=== PATIENT | female | born 1930 | race Two or more races ===

== ENCOUNTER 2017-02-25 10:40 | Emergency (ER) | payer MEDICARE ==
[2017-02-25 10:51] VITALS: RESP 18; TEMP 97.9
[2017-02-25 12:06] LABS: INR 2.2 (<1.2); Partial Thromboplastin Time 29.9 sec (22.0-30.0); Prothrombin Time 21.3 sec (9.0-12.0)
--- NOTE | 2017-02-25 12:34 | ED ---
Extremity Problem HPI - General Chief complaint: Extremity Problem,Nontraumatic Stated complaint: leg pain Time Seen by Provider: 02/25/17 11:07 Source: patient, family, RN notes reviewed Mode of arrival: wheelchair Limitations: no limitations - History of Present Illness Initial comments: this is an 86-year-old female presents emergency Department chief complaint of left leg swelling, redness. Patient states that started over the last few weeks and progressively has gotten worse. Patient has seen Dr. Jasso for her left knee had it drained in injected. Patient states that this has not helped.patient states that she's had on and off swelling of the leg and increased pain. Patient states that radiates on into her calf. She has no history DVT. Patient states that she is on Coumadin has not had checked in over 1 month. Patient denies any chest pain or shortness breath at this time. She does have increased pain with walking - Related Data Home Medications Medication Instructions Recorded Confirmed Clopidogrel [Plavix] 75 mg PO DAILY 10/06/14 02/25/17 Levothyroxine Sodium [Synthroid] 75 mcg PO DAILY 10/06/14 02/25/17 Loratadine [Claritin] 10 mg PO DAILY 10/06/14 02/25/17 Ranitidine HCl 150 mg PO HS PRN 10/06/14 02/25/17 Simvastatin [Zocor] 20 mg PO HS 10/06/14 02/25/17 Multivitamin/Iron/Folic Acid 1 tab PO DAILY 03/18/16 02/25/17 [Centrum Complete Multivit Tab] Alendronate Sodium [Fosamax] 70 mg PO HOFFMAN 02/25/17 02/25/17 Ascorbic Acid [Vitamin C] 500 mg PO DAILY 02/25/17 02/25/17 Losartan Potassium [Cozaar] 100 mg PO DAILY 02/25/17 02/25/17 Metoprolol Tartrate [Lopressor] 50 mg PO BID 02/25/17 02/25/17 Warfarin [Coumadin] 1.25 mg PO MOFR 02/25/17 02/25/17 Warfarin [Coumadin] 2.5 mg PO SUTUWETHSA 02/25/17 02/25/17 Previous Rx's Medication Instructions Recorded Aspirin EC [Ecotrin Low Dose] 81 mg PO DAILY #30 tablet. 08/31/16 Furosemide [Lasix] 20 mg PO DAILY #30 tab 03/21/16 Allergies Allergy/AdvReac Type Severity Reaction Status Date / Time adhesive tape Allergy Rash/Hives Verified 02/25/17 11:35 amlodipine besylate Allergy Swelling Verified 02/25/17 11:35 [From Norvasc] codeine Allergy Rash/Hives Verified 02/25/17 11:35 dipyridamole [From Aggrenox] Allergy Nausea Verified 02/25/17 11:35 Penicillins Allergy Rash/Hives Verified 02/25/17 11:35 Review of Systems ROS Statement: Those systems with pertinent positive or pertinent negative responses have been documented in the HPI. ROS Other: All systems not noted in ROS Statement are negative. Past Medical History Past Medical History: CVA/TIA, GERD/Reflux, Hyperlipidemia, Hypertension, Thyroid Disorder History of Any Multi-Drug Resistant Organisms: None Reported Past Surgical History: Appendectomy, Orthopedic Surgery Additional Past Surgical History / Comment(s): Carpal tunnel, plate to R arm, vein stripping in BL LE, BL cataract removal Past Anesthesia/Blood Transfusion Reactions: No Reported Reaction Past Psychological History: No Psychological Hx Reported Smoking Status: Former smoker Past Alcohol Use History: None Reported Past Drug Use History: None Reported - Past Family History Mother Family Medical History: CVA/TIA Father Family Medical History: Cancer Additional Family Medical History / Comment(s): Bone Cancer General Exam Limitations: no limitations General appearance: alert, in no apparent distress Neck exam: Present: normal inspection. Absent: tenderness, meningismus, lymphadenopathy Respiratory exam: Present: normal lung sounds bilaterally. Absent: respiratory distress, wheezes, rales, rhonchi, stridor Cardiovascular Exam: Present: regular rate, normal rhythm, normal heart sounds. Absent: systolic murmur, diastolic murmur, rubs, gallop, clicks Extremities exam: Present: other (left leg there is moderate swelling noted pedal pulses equal bilaterally there are multiple scars noted from vein stripping, left knee full range of motion there is some tenderness in the popliteal region no erythema noted no warmth) Course Vital Signs 02/25/17 02/25/17 10:48 12:45 Temperature 97.9 F Pulse Rate 53 L 55 L Respiratory 18 18 Rate Blood Pressure 196/74 192/81 O2 Sat by Pulse 98 97 Oximetry Medical Decision Making - Medical Decision Making 86 show female presented for left leg pain and intermittent swelling. Patient' s ultrasound does not show acute DVT. Patient does have a gastroc cysts noted patient does see currently see Dr. Jasso orthopedic physician. Patient will follow-up with him return parameters were discussed. - Lab Data Lab Results 02/25/17 Range/Units 11:35 PT 21.3 H (9.0-12.0) sec INR 2.2 H (<1.2) APTT 29.9 (22.0-30.0) sec Disposition Clinical Impression: Burnett cyst Disposition: HOME SELF-CARE Condition: Stable Instructions: Bakers Cyst (ED) Additional Instructions: Please return to the Emergency Department if symptoms worsen or any other concerns. Referrals: Darya Astudillo MD [Primary Care Provider] - 1-2 days Randolph Jasso DO [Doctor of Osteopathic Medicine] - 1-2 days Time of Disposition: 13:02
[2017-02-25 12:46] VITALS: BP 192/81; PULSE 55
--- NOTE | 2017-02-25 12:52 | US ---
EXAMINATION TYPE: US venous doppler duplex LE LT DATE OF EXAM: 02/25/2017 12:11 PM COMPARISON: Previous exam 03/18/2016 CLINICAL HISTORY: Pain. Achy left knee, no h/o dvt SIDE PERFORMED: Left TECHNIQUE: The lower extremity deep venous system is examined utilizing real time linear array sonog stanley with graded compression, doppler sonography and color-flow sonography. VESSELS IMAGED: External Iliac Vein (EIV) Common Femoral Vein Deep Femoral Vein Greater Saphenous Vein * Femoral Vein Popliteal Vein Small Saphenous Vein * Proximal Calf Veins (* superficial vessels) patient had difficulty tolerating compression on left thigh so imaging shows attempted vein carlos lillian, but was able to obtain good color fill and doppler showing patency. Left Leg: Appears negative for DVT, 5.2cm fluid collection noted posterior to vessels as seen on pre vious exam last year IMPRESSION: Grayscale, color doppler, spectral doppler imaging performed of the deep veins of the lo wer extremities. There is normal flow, compressibility, vascular waveforms bilaterally. No evident deep venous thrombosis within the left lower extremity as described. Exam was somewhat limited at the peripheral femoral vein level. 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
== END 2017-02-25 13:09 | disposition home or self-care (01) ==
LOC: EC 10:40
DX: M71.22 Synovial cyst of popliteal space [Baker], left knee (principal); M79.89 Other specified soft tissue disorders; E78.5 Hyperlipidemia, unspecified; I10 Essential (primary) hypertension; E07.9 Disorder of thyroid, unspecified; Z87.891 Personal history of nicotine dependence; Z86.73 Personal history of transient ischemic attack (TIA), and cerebral infarction without residual deficits; Z79.01 Long term (current) use of anticoagulants; Z79.899 Other long term (current) drug therapy; Z88.0 Allergy status to penicillin; Z88.5 Allergy status to narcotic agent; Z88.8 Allergy status to other drugs, medicaments and biological substances; Z91.048 Other nonmedicinal substance allergy status
CPT/HCPCS: 36415; 85610; 85730; 99284

== ENCOUNTER 2017-03-26 16:24 | Observation (INO) | payer MEDICARE ==
[2017-03-26] MEDS ORDERED: HYDROmorphone 1 MG/ML 1 ML SYRINGE IVP STA (16:41)
--- NOTE | 2017-03-26 16:49 | ED ---
Extremity Problem HPI - General Chief complaint: Extremity Problem,Nontraumatic Stated complaint: Lt knee pain Time Seen by Provider: 03/26/17 16:37 Source: patient, EMS Mode of arrival: EMS Limitations: no limitations - History of Present Illness Initial comments: This 86-year-old white female presents complaining of some left leg pain. She relates that she's had this for at least the last month and a half but it has been progressively worsening. She was diagnosed with a cyst behind her left knee during her last ER visit via Doppler ultrasound. They do not notice any DVT. She followed up with her orthopedic physician but they did not want to drain the cyst because it would likely grow back per patient. Orthopedic surgeon. She now is having a hard time ambulating due to the pain. She is brought in via EMS. She is requesting pain medications. No other complaints or modifying factors. - Related Data Home Medications Medication Instructions Recorded Confirmed Clopidogrel [Plavix] 75 mg PO DAILY 10/06/14 03/26/17 Levothyroxine Sodium [Synthroid] 75 mcg PO DAILY 10/06/14 03/26/17 Loratadine [Claritin] 10 mg PO DAILY PRN 10/06/14 03/26/17 Ranitidine HCl 150 mg PO HS PRN 10/06/14 03/26/17 Simvastatin [Zocor] 20 mg PO HS 10/06/14 03/26/17 Multivitamin/Iron/Folic Acid 1 tab PO DAILY 03/18/16 03/26/17 [Centrum Complete Multivit Tab] Alendronate Sodium [Fosamax] 70 mg PO HOFFMAN 02/25/17 03/26/17 Ascorbic Acid [Vitamin C] 500 mg PO DAILY 02/25/17 03/26/17 Losartan Potassium [Cozaar] 100 mg PO DAILY 02/25/17 03/26/17 Metoprolol Tartrate [Lopressor] 50 mg PO BID 02/25/17 03/26/17 Warfarin [Coumadin] 1.25 mg PO MOFR 02/25/17 03/26/17 Warfarin [Coumadin] 2.5 mg PO SUTUWETHSA 02/25/17 03/26/17 Cholecalciferol [Vitamin D3] 1,000 unit PO DAILY 03/26/17 03/26/17 Previous Rx's Medication Instructions Recorded Aspirin EC [Ecotrin Low Dose] 81 mg PO DAILY #30 tablet. 03/21/16 Furosemide [Lasix] 20 mg PO DAILY #30 tab 03/21/16 Allergies Allergy/AdvReac Type Severity Reaction Status Date / Time adhesive tape Allergy Rash/Hives Verified 03/26/17 17:10 amlodipine besylate Allergy Swelling Verified 03/26/17 17:10 [From Norvasc] codeine Allergy Rash/Hives Verified 03/26/17 17:10 dipyridamole [From Aggrenox] Allergy Nausea Verified 03/26/17 17:10 Penicillins Allergy Rash/Hives Verified 03/26/17 17:10 Review of Systems ROS Statement: Those systems with pertinent positive or pertinent negative responses have been documented in the HPI. ROS Other: All systems not noted in ROS Statement are negative. Past Medical History Past Medical History: CVA/TIA, GERD/Reflux, Hyperlipidemia, Hypertension, Thyroid Disorder Additional Past Medical History / Comment(s): Cyst behind Lt Knee History of Any Multi-Drug Resistant Organisms: None Reported Past Surgical History: Appendectomy, Orthopedic Surgery Additional Past Surgical History / Comment(s): Carpal tunnel, plate to R arm, vein stripping in BL LE, BL cataract removal, Left knee drained in February 2017 Past Anesthesia/Blood Transfusion Reactions: No Reported Reaction Past Psychological History: No Psychological Hx Reported Smoking Status: Former smoker Past Alcohol Use History: None Reported Past Drug Use History: None Reported - Past Family History Mother Family Medical History: CVA/TIA Father Family Medical History: Cancer Additional Family Medical History / Comment(s): Bone Cancer General Exam - General Exam Comments Initial Comments: GENERAL: The patient is well nourished and well hydrated. VITAL SIGNS: Heart rate, blood pressure, respiratory rate reviewed as recorded in nurse's notes. EYES: Pupils are round and reactive. Extraocular movements are intact. No conjunctival / lid redness or swelling. ENT: No external evidence of injury, swelling, or ecchymosis. Airway is patent. Throat is clear. NECK: Nontender. No swelling or evidence of injury. No subcutaneous emphysema. Trachea is midline. No thyroid mass. HEART: Regular rate and rhythm. Good peripheral pulses. LUNGS/CHEST: Breath sounds clear and equal bilaterally. No rales, rhonchi, or wheezes. No ecchymosis, subcutaneous emphysema, or tenderness. ABDOMEN: Abdomen soft without tenderness. No palpable masses or organomegaly. No peritoneal signs. No abdominal wall swelling or ecchymosis. EXTREMITIES: There is tenderness noted to the left lower extremity and this seems worse in the area just posterior to the knee and into the left calf region. There is pain with any movement of the leg. Strength is intact. Normal muscle tone and function. No thoracolumbar tenderness. NEUROLOGIC: Sensation is grossly intact. Cranial nerve exam reveals face is symmetrical, tongue is midline, speech is clear. SKIN: No abrasions or ecchymosis is noted. No induration or masses noted. PSYCHIATRIC: Alert and oriented. Appropriate behavior and judgment. Limitations: no limitations Course Vital Signs 03/26/17 16:29 Temperature 97.7 F Pulse Rate 69 Respiratory 20 Rate Blood Pressure 174/95 O2 Sat by Pulse 96 Oximetry Medical Decision Making - Medical Decision Making The patient was seen and examined. Old records were reviewed. It sounds as though her symptomatology is likely due to a Burnett's cyst. She does receive Dilaudid 1 mg IM. The ultrasound did not show any evidence of DVT but it does show a 4.4 cm cyst behind the left knee. She is feeling improved on recheck. She is still unable to ambulate due to the pain. It is felt as though she would require admission to the hospital for further treatment. Case will be discussed with internal medicine shortly. The patient and family are interested in seeing a different orthopedic surgeon. Disposition Clinical Impression: Left leg pain, Bakers cyst, Inability to walk, Left leg swelling Disposition: ADMITTED IP TO THIS [facility] Condition: Fair Referrals: Darya Astudillo MD [Primary Care Provider] - 1-2 days
--- NOTE | 2017-03-26 18:23 | US ---
EXAMINATION TYPE: US venous doppler duplex LE LT DATE OF EXAM: 03/26/2017 5:42 PM COMPARISON: Prior in PACS CLINICAL HISTORY: Pain in left knee. SIDE PERFORMED: Left TECHNIQUE: The lower extremity deep venous system is examined utilizing real time linear array sonog stanley with graded compression, doppler sonography and color-flow sonography. VESSELS IMAGED: External Iliac Vein (EIV) Common Femoral Vein Deep Femoral Vein Greater Saphenous Vein * Femoral Vein Popliteal Vein Small Saphenous Vein * Proximal Calf Veins (* superficial vessels) FINDINGS: Grayscale, color doppler, spectral doppler imaging performed of the deep veins of the lower extremiti es. There is normal flow, compressibility, vascular waveforms. In the left popliteal fossa, there is a complex follicle area visualized measuring 4.4 x 3.4 x 3.8 cm . This likely represents a popliteal cyst and can be further visualized and characterized with MRI if clinically indicated. IMPRESSION: 1. LEFT LOWER EXTREMITY: NEGATIVE FOR DEEP VENOUS THROMBOSIS. 2. 4 CM MEAN DIAMETER ISOECHOIC FINDING THE POPLITEAL FOSSA, LIKELY HERMOSILLO CYST.
[2017-03-26] MEDS ORDERED: NALOXONE 0.4 MG/ML 1 ML VIAL IV PRN (18:29)
[2017-03-26] MEDS ORDERED: ACETAMINOPHEN TAB 325 MG TAB PO PRN (18:29)
[2017-03-26] MEDS ORDERED: LORATADINE 10 MG TAB PO PRN (18:33)
[2017-03-26 18:56] LABS: Basophils % (A) 0 %; CH 31.6; CHCM 34.3; Eosinophils # (A) 0.2 k/uL (0-0.7); Eosinophils % (A) 2 %; HCT 34.6 % (34.0-46.0); HDW 2.38; Luc # (Auto) 0.13; Luc % (Auto) 1; Lymphocytes # (A) 1.3 k/uL (1.0-4.8); Lymphocytes % (A) 13 %; MCH 32.2 pg (25.0-35.0); MCHC 34.8 g/dL (31.0-37.0); MCV 92.3 fL (80.0-100.0); Mean Platelet Volume 6.6; Monocytes # (A) 0.4 k/uL (0-1.0); Monocytes % (A) 4 %; Neutrophils % (A) 80 %; RBC 3.74 m/uL (3.80-5.40); RDW 12.3 % (11.5-15.5); WBC 10.1 k/uL (3.8-10.6); WBC (Perox) 10.24
[2017-03-26] MEDS: ONDANSETRON 4 MG/2 ML VIAL IVP PRN (18:57)
[2017-03-26 19:04] LABS: Anion Gap 8 mmol/L; Blood Urea Nitrogen 21 mg/dL (7-17); Calcium 8.1 mg/dL (8.4-10.2); Carbon Dioxide 23 mmol/L (22-30); Chloride 107 mmol/L (98-107); Glucose 105 mg/dL (74-99); Non-African American GFR(MDRD) >60 (>60 ml/min/1.73 sqM); Potassium 3.5 mmol/L (3.5-5.1); Sodium 138 mmol/L (137-145)
[2017-03-26 19:11] LABS: INR 2.8 (<1.2); Partial Thromboplastin Time 32.4 sec (22.0-30.0); Prothrombin Time 27.4 sec (9.0-12.0)
[2017-03-26] MEDS ORDERED: hydrALAZINE HCL 20 MG/ML 1 ML VIAL IVP STA (19:11)
[2017-03-26] MEDS: METOPROLOL TARTRATE 50 MG TAB PO SCH (19:39)
[2017-03-26] MEDS: HYDROcodone/APAP 5-325MG 1 EACH TAB PO PRN ×2 (19:40→23:31)
[2017-03-26] MEDS: HYDROmorphone 1 MG/ML 1 ML SYRINGE IV PRN (19:58)
[2017-03-26] MEDS: WARFARIN 2.5 MG TAB PO SCH (21:34)
[2017-03-26] MEDS: ATORVASTATIN 10 MG TAB PO SCH (21:35)
[2017-03-27] MEDS: HYDROcodone/APAP 5-325MG 1 EACH TAB PO PRN ×2 (03:29→10:23)
[2017-03-27] MEDS: LEVOTHYROXINE 75 MCG TAB PO SCH (05:51)
[2017-03-27] MEDS ORDERED: LIDOCAINE 2% INJ 20 MG/ML (20 ML MDV) SQ STA (08:30)
[2017-03-27] MEDS ORDERED: CLOPIDOGREL 75 MG TAB PO SCH (09:00)
[2017-03-27] MEDS: METOPROLOL TARTRATE 50 MG TAB PO SCH ×2 (09:02→21:35)
[2017-03-27] MEDS: PANTOPRAZOLE 40 MG/10 ML VIAL IV SCH (09:03)
[2017-03-27] MEDS: LOSARTAN 50 MG TAB PO SCH (09:04)
[2017-03-27] MEDS: ASPIRIN 81 MG PO SCH (09:10)
[2017-03-27] MEDS: FUROSEMIDE 20 MG TAB PO SCH (09:11)
--- NOTE | 2017-03-27 09:26 | P.CNOR ---
History of Present Illness - HPI Consult date: 03/27/17 History of present illness: This is a pleasant 86-year-old female who was admitted for worsening left leg pain. Patient states for about a month now she's had worsening left knee pain. Patient denies any injury or fall. Patient states she's been treated in the past with joint aspiration, cortisone injections and hyaluronic acid injections. 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 patient reports increase in swelling in the left knee. Patient states yesterday she is unable to walk on the left lower extremity due to the pain. Patient states the last time her knee was drained was around 03/17/2017. Patient states she is unable to have an MRI due to pacemaker. Patient denies any numbness, weakness or tingling, fever/chills. Review of Systems See HPI. Past Medical History Past Medical History: CVA/TIA, GERD/Reflux, Hyperlipidemia, Hypertension, Thyroid Disorder Additional Past Medical History / Comment(s): Cyst behind Lt Knee irregular heart beat History of Any Multi-Drug Resistant Organisms: None Reported Past Surgical History: Appendectomy, Orthopedic Surgery, Pacemaker Additional Past Surgical History / Comment(s): Carpal tunnel, plate to R arm, vein stripping in BL LE, BL cataract removal, Left knee drained in February 2017 Past Anesthesia/Blood Transfusion Reactions: No Reported Reaction Type of Cardiac Device: Permanent Pacemaker Device Placement Date:: march 20 2016 Past Psychological History: No Psychological Hx Reported Smoking Status: Former smoker Past Alcohol Use History: None Reported Past Drug Use History: None Reported - Past Family History Mother Family Medical History: CVA/TIA Father Family Medical History: Cancer Additional Family Medical History / Comment(s): Bone Cancer Medications and Allergies Home Medications Medication Instructions Recorded Confirmed Type Clopidogrel [Plavix] 75 mg PO DAILY 10/06/14 03/26/17 History Levothyroxine Sodium [Synthroid] 75 mcg PO DAILY 10/06/14 03/26/17 History Loratadine [Claritin] 10 mg PO DAILY PRN 10/06/14 03/26/17 History Ranitidine HCl 150 mg PO HS PRN 10/06/14 03/26/17 History Simvastatin [Zocor] 20 mg PO HS 10/06/14 03/26/17 History Multivitamin/Iron/Folic Acid 1 tab PO DAILY 03/18/16 03/26/17 History [Centrum Complete Multivit Tab] Aspirin EC [Ecotrin Low Dose] 81 mg PO DAILY #30 tablet. 03/21/16 03/26/17 Rx Furosemide [Lasix] 20 mg PO DAILY #30 tab 03/21/16 03/26/17 Rx Alendronate Sodium [Fosamax] 70 mg PO HOFFMAN 02/25/17 03/26/17 History Ascorbic Acid [Vitamin C] 500 mg PO DAILY 02/25/17 03/26/17 History Losartan Potassium [Cozaar] 100 mg PO DAILY 02/25/17 03/26/17 History Metoprolol Tartrate [Lopressor] 50 mg PO BID 02/25/17 03/26/17 History Warfarin [Coumadin] 1.25 mg PO MOFR 02/25/17 03/26/17 History Warfarin [Coumadin] 2.5 mg PO SUTUWETHSA 02/25/17 03/26/17 History Cholecalciferol [Vitamin D3] 1,000 unit PO DAILY 03/26/17 03/26/17 History Allergies Allergy/AdvReac Type Severity Reaction Status Date / Time adhesive tape Allergy Rash/Hives Verified 03/26/17 17:10 amlodipine besylate Allergy Swelling Verified 03/26/17 17:10 [From Norvasc] codeine Allergy Rash/Hives Verified 03/26/17 17:10 dipyridamole [From Aggrenox] Allergy Nausea Verified 03/26/17 17:10 Penicillins Allergy Rash/Hives Verified 03/26/17 17:10 Physical Examination On exam the left lower extremity there is a moderate joint effusion. There is no erythema or ecchymosis. Patient has limited range of motion with flexion due to swelling and pain. Patient has full extension. Calf is soft and nontender. Patient has full foot and ankle motion. Neurovascular status left lower extremity is intact. Results Ultrasound Venous Doppler left lower extremity shows #1 left lower extremity negative for deep venous thrombosis. #2. 4 cm mean diameter isoechoic finding the popliteal fossa, likely Burnett cyst. - Labs Labs: Abnormal Lab Results - Last 24 Hours (Table) 03/26/17 03/26/17 03/26/17 Range/Units 18:40 18:40 18:40 RBC 3.74 L (3.80-5.40) m/uL Neutrophils # 8.0 H (1.3-7.7) k/uL PT 27.4 H (9.0-12.0) sec INR 2.8 H (<1.2) APTT 32.4 H (22.0-30.0) sec BUN 21 H (7-17) mg/dL Glucose 105 H (74-99) mg/dL Calcium 8.1 L (8.4-10.2) mg/dL H & H 03/26/17 Range/Units 18:40 Hgb 12.0 (11.4-16.0) gm/dL Hct 34.6 (34.0-46.0) % Coagulation 03/26/17 Range/Units 18:40 INR 2.8 H (<1.2) Result Diagrams: 03/26/17 18:40 03/26/17 18:40 Assessment and Plan (1) Effusion, left knee Status: Acute (2) Bakers cyst Status: Acute (3) Left leg pain Status: Acute Plan: #1. Joint aspiration performed using 2% Xylocaine for local anesthetic. 60cc of sanguineous joint fluid was obtained. Patient tolerated the procedure well. A compressive Akbar wrap was applied. #2. Joint fluid to be sent out for analysis. #3. X-ray of the left knee is pending. #4. Area to continue compressive Akbar wrap, rest, ice and elevation. #5. Will continue to follow the patient closely.
--- NOTE | 2017-03-27 09:31 | XR ---
EXAMINATION TYPE: XR knee complete LT DATE OF EXAM: 03/27/2017 COMPARISON: NONE HISTORY: Pain TECHNIQUE: Four views are submitted. FINDINGS: Diffuse osteopenia. There is hypertrophic change and narrowing of the medial compartment joint space. There is a large suprapatellar bursal fluid collection. Scalloping of the anterior margin distal chris physis femur noted. Osseous density off the posterior margin the femur may represent a small left IMPRESSION: 1. 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 There is slight displacement whitney lla. Recommend MRI. 2. Chronic-appearing scalloping of the anterior cortex distal diaphysis femur also could be assessed with MRI.
[2017-03-27] MEDS ORDERED: MAG HYDROX/AL HYDROX/SIMETH 30 ML, HYOSCYAMINE ELIXIR 10 ML, CIMETIDINE HCL 300 MG PO STA ×3 (11:05)
[2017-03-27] MEDS: traMADol 50 MG TAB PO PRN ×2 (11:10→19:25)
[2017-03-27] MEDS ORDERED: FAMOTIDINE 20 MG/2 ML VIAL IV SCH (11:15)
[2017-03-27 12:20] LABS: Synovial Crystal Source Left Knee
[2017-03-27 12:21] LABS: RBC, Body Fluid 2045000 /uL
[2017-03-27] MEDS: ASCORBIC ACID 500 MG TAB PO SCH (12:29)
[2017-03-27] MEDS: MULTIVITAMINS, THERA 1 EACH TAB PO SCH (12:29)
[2017-03-27] MEDS: CHOLECALCIFEROL 1,000 UNIT TAB PO SCH (12:29)
--- NOTE | 2017-03-27 12:48 | P.HPIM ---
History of Present Illness H&P Date: 03/27/17 Chief Complaint: Left knee pain [id number] female who has been having problems with her left knee since 2016 Patient apparently underwent an arthrocentesis and workup by Dr. hanson at that time. Today patient comes in to the hospital with worsening pain in her left knee for the last 3-4 days. 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 Patient was told that she has significant osteoarthritis of the left knee. Patient is on Coumadin for her history of atrial fibrillation was noted to have a therapeutic INR on admission States that her main complaints of insignificant worsening edema in her left lower extremity with associated tenderness patient underwent a DVT study initially a month ago which was also negative A DVT study was done on this admission which was also negative At this time patient denies having any fevers chills nausea vomiting abdominal pain diarrhea urinary urgency or frequency Patient denies having any history of gout or any renal colic diseases. Review of Systems All systems: negative (Noted in HPI) Past Medical History Past Medical History: CVA/TIA, GERD/Reflux, Hyperlipidemia, Hypertension, Thyroid Disorder Additional Past Medical History / Comment(s): Cyst behind Lt Knee irregular heart beat History of Any Multi-Drug Resistant Organisms: None Reported Past Surgical History: Appendectomy, Orthopedic Surgery, Pacemaker Additional Past Surgical History / Comment(s): Carpal tunnel, plate to R arm, vein stripping in BL LE, BL cataract removal, Left knee drained in February 2017 Past Anesthesia/Blood Transfusion Reactions: No Reported Reaction Type of Cardiac Device: Permanent Pacemaker Device Placement Date:: march 20 2016 Past Psychological History: No Psychological Hx Reported Smoking Status: Former smoker Past Alcohol Use History: None Reported Past Drug Use History: None Reported - Past Family History Mother Family Medical History: CVA/TIA Father Family Medical History: Cancer Additional Family Medical History / Comment(s): Bone Cancer Medications and Allergies Home Medications Medication Instructions Recorded Confirmed Type Levothyroxine Sodium [Synthroid] 75 mcg PO DAILY 10/06/14 03/26/17 History Loratadine [Claritin] 10 mg PO DAILY PRN 10/06/14 03/26/17 History Ranitidine HCl 150 mg PO HS PRN 10/06/14 03/26/17 History Simvastatin [Zocor] 20 mg PO HS 10/06/14 03/26/17 History Multivitamin/Iron/Folic Acid 1 tab PO DAILY 03/18/16 03/26/17 History [Centrum Complete Multivit Tab] Aspirin EC [Ecotrin Low Dose] 81 mg PO DAILY #30 tablet. 03/21/16 03/26/17 Rx Furosemide [Lasix] 20 mg PO DAILY #30 tab 03/21/16 03/26/17 Rx Alendronate Sodium [Fosamax] 70 mg PO HOFFMAN 02/25/17 03/26/17 History Ascorbic Acid [Vitamin C] 500 mg PO DAILY 02/25/17 03/26/17 History Losartan Potassium [Cozaar] 100 mg PO DAILY 02/25/17 03/26/17 History Metoprolol Tartrate [Lopressor] 50 mg PO BID 02/25/17 03/26/17 History Warfarin [Coumadin] 1.25 mg PO MOFR 02/25/17 03/26/17 History Warfarin [Coumadin] 2.5 mg PO SUTUWETHSA 02/25/17 03/26/17 History Cholecalciferol [Vitamin D3] 1,000 unit PO DAILY 03/26/17 03/26/17 History Allergies Allergy/AdvReac Type Severity Reaction Status Date / Time adhesive tape Allergy Rash/Hives Verified 03/26/17 17:10 amlodipine besylate Allergy Swelling Verified 03/26/17 17:10 [From Norvasc] codeine Allergy Rash/Hives Verified 03/26/17 17:10 dipyridamole [From Aggrenox] Allergy Nausea Verified 03/26/17 17:10 Penicillins Allergy Rash/Hives Verified 03/26/17 17:10 Physical Exam Vitals: Vital Signs Temp Pulse Pulse Resp BP BP Pulse Ox 03/27/17 07:00 97.9 F 74 16 147/64 93 L 03/26/17 23:00 98.1 F 83 20 134/62 96 03/26/17 20:31 99.5 F 84 20 160/76 95 03/26/17 20:04 98.2 F 76 16 190/83 95 03/26/17 19:37 184/82 03/26/17 19:09 200/78 03/26/17 16:29 97.7 F 69 20 174/95 96 Intake and Output 03/26/17 03/27/17 03/27/17 22:59 06:59 14:59 Intake Total 150 Balance 150 Intake: Oral 150 Other: # Voids 2 1 1 # Emeses 2 Weight 86.183 kg Physical exam Gen. appearance oriented 3 in no distress Neck is supple no JVD Lungs good air entry clear to auscultation no rhonchi or wheezing Heart S1-S2 heard regular rate and rhythm no murmurs appreciated Abdomen is soft nontender no organomegaly bowel sounds are intact Musculoskeletal left knee is wrapped after the arthrocentesis. There is edema pitting in nature from below the knee on the left side area tender to palpation Neurologically cranial nerves II-12 grossly intact no focal motor or sensory deficits noted Skin no abnormalities appreciated Results CBC & Chem 7: 03/26/17 18:40 03/26/17 18:40 Labs: Abnormal Lab Results - Last 24 Hours (Table) 03/26/17 03/26/17 03/26/17 Range/Units 18:40 18:40 18:40 RBC 3.74 L (3.80-5.40) m/uL Neutrophils # 8.0 H (1.3-7.7) k/uL PT 27.4 H (9.0-12.0) sec INR 2.8 H (<1.2) APTT 32.4 H (22.0-30.0) sec BUN 21 H (7-17) mg/dL Glucose 105 H (74-99) mg/dL Calcium 8.1 L (8.4-10.2) mg/dL Thrombosis Risk Factor Assmnt - Choose All That Apply Any of the Below Risk Factors Present?: Yes Each Factor Represents 1 point: Medical pt on bed rest, Obesity (BMI >25), Swollen legs (current) Other Risk Factors: Yes Each Risk Factor Represents 3 Points: Age 75 years or older Other congenital or acquired thrombophilia - If yes, enter type in comment: No Thrombosis Risk Factor Assessment Total Risk Factor Score: 6 Thrombosis Risk Factor Assessment Level: High Risk Assessment and Plan Plan: #1 acute left knee effusion synovitis fluid analysis does not appear to be suggestive of an infectious cause #2 history of atrial fibrillation #3 history of CVA #4 hypothymism #5 essential hypertension #6 acute gastritis due to opioid non-tolerance. #7 dyslipidemia Plan Await further laboratory data. A uric acid level was also sent Compression wrap of the lower extremity a deep vein thrombosis was ruled out Continue pain control add Toradol for pain. Will continue monitoring PT/INR.
[2017-03-27] MEDS ORDERED: MAG HYDROX/AL HYDROX/SIMETH 30 ML, HYOSCYAMINE ELIXIR 10 ML, CIMETIDINE HCL 300 MG PO ONE ×3 (13:00)
[2017-03-27] MEDS: WARFARIN 2.5 MG TAB PO SCH (17:32)
[2017-03-27] MEDS: ATORVASTATIN 10 MG TAB PO SCH (21:35)
[2017-03-27] MEDS: HYDROmorphone 1 MG/ML 1 ML SYRINGE IV PRN (23:26)
[2017-03-28] MEDS: traMADol 50 MG TAB PO PRN ×3 (04:11→20:47)
[2017-03-28] MEDS: LEVOTHYROXINE 75 MCG TAB PO SCH (06:23)
[2017-03-28] MEDS: METOPROLOL TARTRATE 50 MG TAB PO SCH ×2 (07:50→20:46)
[2017-03-28] MEDS: LOSARTAN 50 MG TAB PO SCH (07:50)
[2017-03-28] MEDS: FUROSEMIDE 20 MG TAB PO SCH (07:50)
[2017-03-28] MEDS: ASPIRIN 81 MG PO SCH (07:51)
[2017-03-28] MEDS: PANTOPRAZOLE 40 MG/10 ML VIAL IV SCH (08:36)
[2017-03-28 08:47] LABS: INR 3.9 (<1.2); Prothrombin Time 37.9 sec (9.0-12.0)
--- NOTE | 2017-03-28 09:18 | P.PN ---
Subjective Principal diagnosis: Left knee pain, left knee effusion This is an 86-year-old female who was admitted for left knee pain. Patient states she still has pain in the left knee today along with swelling. Patient states she has kept the compressive Akbar wrap on. Patient has no new complaints today. Patient did report some tingling in the left foot most likely caused by swelling and the akbar wrap. Patient denies fever/chills. Objective - Vital Signs Vital signs: Vital Signs Temp 98.8 F 03/28/17 07:00 Pulse 90 03/28/17 07:00 Resp 18 03/28/17 07:00 BP 137/79 03/28/17 07:00 Pulse Ox 94 L 03/28/17 07:00 Intake & Output 03/27/17 03/28/17 03/28/17 18:59 06:59 18:59 Output Total 1 Balance -1 Output: Emesis 1 Other: # Voids 1 2 - Exam On examination left lower extremity there is a moderate effusion. There is no erythema or warmth. Patient has limited range of motion due to pain and swelling. Calf is soft and nontender. Patient has full foot and ankle motion. Neurovascular status intact. - Labs CBC & Chem 7: 03/26/17 18:40 03/26/17 18:40 Labs: Microbiology - Last 24 Hours (Table) 03/27/17 09:00 Gram Stain - Preliminary Knee - Left Body Fluid Culture - Preliminary Assessment and Plan (1) Effusion, left knee Status: Acute (2) Bakers cyst Status: Acute (3) Left leg pain Status: Acute Plan: #1. Synovial fluid analysis of the left knee negative for any acute process. #2. Knee immobilizer to the left lower extremity. #3. X-ray of the left knee shows osteoarthritic changes. No fracture or dislocation. There is scalloping of the anterior distal femur. Patient is unable to have an MRI due to pacemaker. #4. Continue compressive Akbar wrap, rest, ice and elevation. #5. Patient may follow up as an outpatient in the office.
[2017-03-28] MEDS: MULTIVITAMINS, THERA 1 EACH TAB PO SCH (11:55)
[2017-03-28] MEDS: CHOLECALCIFEROL 1,000 UNIT TAB PO SCH (11:55)
[2017-03-28] MEDS: ASCORBIC ACID 500 MG TAB PO SCH (11:55)
[2017-03-28] MEDS: ONDANSETRON 4 MG/2 ML VIAL IVP PRN (13:30)
[2017-03-28] MEDS: WARFARIN 2.5 MG TAB PO SCH (17:12)
--- NOTE | 2017-03-28 17:58 | P.PN ---
Subjective 86-year-old female who has been having problems with her left knee since 2016 Patient apparently underwent an arthrocentesis and workup by Dr. hanson at that time. Today patient comes in to the hospital with worsening pain in her left knee for the last 3-4 days. 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 Patient was told that she has significant osteoarthritis of the left knee. Patient is on Coumadin for her history of atrial fibrillation was noted to have a therapeutic INR on admission States that her main complaints of insignificant worsening edema in her left lower extremity with associated tenderness patient underwent a DVT study initially a month ago which was also negative A DVT study was done on this admission which was also negative At this time patient denies having any fevers chills nausea vomiting abdominal pain diarrhea urinary urgency or frequency Patient denies having any history of gout or any renal colic diseases. 03/28/2017 Patient continues to have edema and tenderness in her left lower extremity. No fevers chills chest pain difficulty breathing nausea vomiting diarrhea is reported Physical exam Gen. appearance oriented 3 in no distress Neck is supple no JVD Lungs good air entry clear to auscultation no rhonchi or wheezing Heart S1-S2 heard regular rate and rhythm no murmurs appreciated Abdomen is soft nontender no organomegaly bowel sounds are intact Musculoskeletal left knee is wrapped There is edema pitting in nature from below the knee on the left side area tender to palpation Neurologically cranial nerves II-12 grossly intact no focal motor or sensory deficits noted Skin no abnormalities appreciated Assessment and Plan Plan: #1 acute left knee effusion synovitis fluid analysis does not appear to be suggestive of an infectious cause #2 history of atrial fibrillation #3 history of CVA #4 hypothyroidism #5 essential hypertension #6 acute gastritis due to opioid non-tolerance. #7 dyslipidemia Plan Hold Coumadin. Repeat PT/INR tomorrow Pain control Patient will need a knee replacement the timing of the liver defer to orthopedics however patient is stable to be discharged due to lack of support at home for her ADLs Physical therapy evaluation Objective - Vital Signs Vital signs: Vital Signs Temp 96.3 F L 03/28/17 15:00 Pulse 66 03/28/17 15:00 Resp 16 03/28/17 15:00 BP 183/70 03/28/17 15:00 Pulse Ox 93 L 03/28/17 15:00 Intake & Output 03/27/17 03/28/17 03/28/17 18:59 06:59 18:59 Output Total 1 Balance -1 Output: Emesis 1 Other: # Voids 1 2 1 - Labs CBC & Chem 7: 03/26/17 18:40 03/26/17 18:40 Labs: Abnormal Lab Results - Last 24 Hours (Table) 03/28/17 Range/Units 08:21 PT 37.9 H (9.0-12.0) sec INR 3.9 H (<1.2) Microbiology - Last 24 Hours (Table) 03/27/17 09:00 Gram Stain - Preliminary Knee - Left Body Fluid Culture - Preliminary
[2017-03-28] MEDS: ATORVASTATIN 10 MG TAB PO SCH (20:46)
[2017-03-29] MEDS: traMADol 50 MG TAB PO PRN ×2 (04:00→15:51)
[2017-03-29] MEDS: ONDANSETRON 4 MG/2 ML VIAL IVP PRN (04:00)
[2017-03-29] MEDS: LEVOTHYROXINE 75 MCG TAB PO SCH (06:48)
[2017-03-29] MEDS ORDERED: PANTOPRAZOLE 40 MG TABLET PO SCH (07:30)
[2017-03-29] MEDS: METOPROLOL TARTRATE 50 MG TAB PO SCH (07:56)
[2017-03-29] MEDS: ASPIRIN 81 MG PO SCH (07:57)
[2017-03-29] MEDS: LOSARTAN 50 MG TAB PO SCH (07:57)
[2017-03-29] MEDS: FUROSEMIDE 20 MG TAB PO SCH (07:57)
[2017-03-29 08:54] LABS: Basophils % (A) 0 %; CH 31.6; CHCM 34.7; Eosinophils # (A) 0.1 k/uL (0-0.7); Eosinophils % (A) 1 %; HCT 36.4 % (34.0-46.0); HDW 2.48; HGB 12.7 gm/dL (11.4-16.0); Luc # (Auto) 0.14; Luc % (Auto) 1; Lymphocytes # (A) 1.2 k/uL (1.0-4.8); Lymphocytes % (A) 11 %; MCHC 34.9 g/dL (31.0-37.0); MCV 91.6 fL (80.0-100.0); Mean Platelet Volume 6.6; Monocytes # (A) 0.8 k/uL (0-1.0); Monocytes % (A) 7 %; Neutrophils # (A) 9.4 k/uL (1.3-7.7); Neutrophils % (A) 80 %; RBC 3.97 m/uL (3.80-5.40); RDW 12.2 % (11.5-15.5); WBC 11.7 k/uL (3.8-10.6)
[2017-03-29 08:56] LABS: INR 4.6 (<1.2)
[2017-03-29 09:14] LABS: Prothrombin Time 45.8 sec (9.0-12.0)
[2017-03-29 09:17] LABS: ALT 28 U/L (9-52); AST 32 U/L (14-36); Alkaline Phosphatase 72 U/L (38-126); Anion Gap 8 mmol/L; Blood Urea Nitrogen 15 mg/dL (7-17); Calcium 8.7 mg/dL (8.4-10.2); Carbon Dioxide 30 mmol/L (22-30); Chloride 89 mmol/L (98-107); Glucose 127 mg/dL (74-99); Non-African American GFR(MDRD) >60 (>60 ml/min/1.73 sqM); Potassium 3.5 mmol/L (3.5-5.1); Sodium 127 mmol/L (137-145); Total Bilirubin 0.8 mg/dL (0.2-1.3); Total Protein 6.5 g/dL (6.3-8.2)
[2017-03-29] MEDS: CHOLECALCIFEROL 1,000 UNIT TAB PO SCH (12:01)
[2017-03-29] MEDS: ASCORBIC ACID 500 MG TAB PO SCH (12:01)
[2017-03-29] MEDS: MULTIVITAMINS, THERA 1 EACH TAB PO SCH (12:01)
--- NOTE | 2017-03-29 13:15 | P.PN ---
Subjective Principal diagnosis: Left knee pain, left knee effusion This is an 86-year-old female who was admitted for left knee pain. Patient continues to have pain and swelling in the left knee. Patient states she has kept the compressive Akbar wrap on. Patient has no new complaints today. Patient states she had difficulty getting out of bed with physical therapy today the pain in the knee. Family states the patient has been up in a chair once or twice within the last 2 days. Patient denies fever/chills. Objective - Vital Signs Vital signs: Vital Signs Temp 98.5 F 03/29/17 07:00 Pulse 70 03/29/17 07:00 Resp 18 03/29/17 07:00 BP 174/85 03/29/17 07:00 Pulse Ox 91 L 03/29/17 07:00 Intake & Output 03/28/17 03/29/17 03/29/17 18:59 06:59 18:59 Other: Voiding Method Bedside Commode # Voids 1 2 1 - Exam On examination left lower extremity there is a moderate effusion. There is no erythema or warmth. Patient has limited range of motion due to pain and swelling. Calf is soft and nontender. Patient has full foot and ankle motion. There is swelling of the left foot, but sensation is intact. Neurovascular status intact. - Labs CBC & Chem 7: 03/29/17 08:32 03/29/17 08:32 Labs: Abnormal Lab Results - Last 24 Hours (Table) 03/29/17 03/29/17 03/29/17 Range/Units 08:32 08:32 08:32 WBC 11.7 H (3.8-10.6) k/uL Neutrophils # 9.4 H (1.3-7.7) k/uL PT 45.8 H (9.0-12.0) sec INR 4.6 H (<1.2) Sodium 127 L (137-145) mmol/L Chloride 89 L (98-107) mmol/L Glucose 127 H (74-99) mg/dL Microbiology - Last 24 Hours (Table) 03/27/17 09:00 Gram Stain - Preliminary Knee - Left Body Fluid Culture - Preliminary Assessment and Plan (1) Effusion, left knee Status: Acute (2) Bakers cyst Status: Acute (3) Left leg pain Status: Acute Plan: #1. GIOVANA hose ordered. #2. Continue knee immobilizer to the left lower extremity when out of bed. #2. Synovial fluid analysis of the left knee negative for any acute process. #3. X-ray of the left knee shows osteoarthritic changes. No fracture or dislocation. There is scalloping of the anterior distal femur. Patient is unable to have an MRI due to pacemaker. #4. Continue compressive Akbar wrap, rest, ice and elevation. #5. Patient's is in the room today and all questions were answered. Discussed follow-up in the office in one week. Likely discharge to rehab per medicine.
--- NOTE | 2017-03-29 13:55 | P.CONS ---
History of Present Illness - Chief Complaint Walking difficulty - History of Present Illness I had him to see patient for inpatient rehab consultation with regard to walking difficulty. She was admitted to [facility] March 26 with left knee pain. Seen by Dr. Sony Medrano for same who notes Burnett's cyst and effusions. Left knee x-ray demonstrates osteoarthritis, suprapatellar effusion , chronic scalloping distal femur. Left leg Doppler negative for DVT. PT reports moderate assistance for functional debility. OT reports supervision for upper dressing and toileting and maximal assistance for lower dressing and functional mobility. Moderate assistance for bathing. Previous functional history as elicited from patient and : 86-year-old right-handed white female who is lives in one form with . Both are retired. Describes independent with cooking, laundry, driving, standing shower and gait with cane or 4 wheeled walker. History smoking in the past but doesn't smoke or drink currently. Family history of cancer in father and mother with heart attack and cardiac disease. Review of Systems Review of systems: ENT: Denies sneezes or discharge. Eyes: Denies discharge or photophobia. Cardiac: Denies chest pain or palpitation. Pulmonary: Denies cough or shortness of breath. Breast: Denies discharge or lumps. Gastrointestinal: Denies nausea, emesis, constipation, diarrhea. Genitourinary: Denies discharge or frequency. Musculoskeletal: Left knee pain. Neurologic: Denies motor or sensory change except related to the left leg. Endocrine: Denies shakes or sweats. Oncology: Denies cancers. Dermatologic: Denies rash, itching, pruritus. ALLERGY/immunology: Denies sneezes, rashes. Past Medical History Past Medical History: CVA/TIA, GERD/Reflux, Hyperlipidemia, Hypertension, Thyroid Disorder Additional Past Medical History / Comment(s): Cyst behind Lt Knee irregular heart beat History of Any Multi-Drug Resistant Organisms: None Reported Past Surgical History: Appendectomy, Orthopedic Surgery, Pacemaker Additional Past Surgical History / Comment(s): Carpal tunnel, plate to R arm, vein stripping in BL LE, BL cataract removal, Left knee drained in February 2017 Past Anesthesia/Blood Transfusion Reactions: No Reported Reaction Type of Cardiac Device: Permanent Pacemaker Device Placement Date:: march 20 2016 Past Psychological History: No Psychological Hx Reported Smoking Status: Former smoker Past Alcohol Use History: None Reported Past Drug Use History: None Reported - Past Family History Mother Family Medical History: CVA/TIA Father Family Medical History: Cancer Additional Family Medical History / Comment(s): Bone Cancer Medications and Allergies Home Medications Medication Instructions Recorded Confirmed Type Levothyroxine Sodium [Synthroid] 75 mcg PO DAILY 10/06/14 03/26/17 History Loratadine [Claritin] 10 mg PO DAILY PRN 10/06/14 03/26/17 History Ranitidine HCl 150 mg PO HS PRN 10/06/14 03/26/17 History Simvastatin [Zocor] 20 mg PO HS 10/06/14 03/26/17 History Multivitamin/Iron/Folic Acid 1 tab PO DAILY 03/18/16 03/26/17 History [Centrum Complete Multivit Tab] Aspirin EC [Ecotrin Low Dose] 81 mg PO DAILY #30 tablet. 03/21/16 03/26/17 Rx Furosemide [Lasix] 20 mg PO DAILY #30 tab 03/21/16 03/26/17 Rx Alendronate Sodium [Fosamax] 70 mg PO HOFFMAN 02/25/17 03/26/17 History Ascorbic Acid [Vitamin C] 500 mg PO DAILY 02/25/17 03/26/17 History Losartan Potassium [Cozaar] 100 mg PO DAILY 02/25/17 03/26/17 History Metoprolol Tartrate [Lopressor] 50 mg PO BID 02/25/17 03/26/17 History Warfarin [Coumadin] 1.25 mg PO MOFR 02/25/17 03/26/17 History Warfarin [Coumadin] 2.5 mg PO SUTUWETHSA 02/25/17 03/26/17 History Cholecalciferol [Vitamin D3] 1,000 unit PO DAILY 03/26/17 03/26/17 History Allergies Allergy/AdvReac Type Severity Reaction Status Date / Time adhesive tape Allergy Rash/Hives Verified 03/26/17 17:10 amlodipine besylate Allergy Swelling Verified 03/26/17 17:10 [From Norvasc] codeine Allergy Rash/Hives Verified 03/26/17 17:10 dipyridamole [From Aggrenox] Allergy Nausea Verified 03/26/17 17:10 Penicillins Allergy Rash/Hives Verified 03/26/17 17:10 Physical Exam Vitals: Vital Signs Temp Pulse Resp BP Pulse Ox 03/29/17 07:00 98.5 F 70 18 174/85 91 L 03/29/17 02:43 156/76 03/28/17 23:00 98.5 F 62 16 194/83 96 03/28/17 15:00 96.3 F L 66 16 183/70 93 L Intake and Output 03/28/17 03/29/17 03/29/17 22:59 06:59 14:59 Other: Voiding Method Bedside Commode # Voids 1 2 1 Skin: Good color, texture, turgor. General: Overweight and comfortable appearance and not moving. Head: Normocephalic, atraumatic. Eyes: Symmetric. Pupils equal round. Ears: Symmetric. Hearing within normal limits. Mouth: Clear. Neck: Supple. Carotid without bruit. Cardiac: Regular rate and rhythm. Lungs: Clear anteriorly and posteriorly. Abdomen: Soft active nontender. Extremities: Normal tone. Akbar wrapping around left leg from distal thigh to foot Neurological: Mental status: Alert, cooperative, pleasant. Cranial nerves: Symmetric facial tone and trapezius. Motor: Normal strength and isolation all 4 limbs but with definite giveaway weakness left leg. Sensation: Intact throughout. DTRs: Symmetric and equal throughout. Mobility: Sits and stands with moderate assistance. Results CBC & Chem 7: 03/29/17 08:32 03/29/17 08:32 Labs: Abnormal Lab Results - Last 24 Hours (Table) 03/29/17 03/29/17 03/29/17 Range/Units 08:32 08:32 08:32 WBC 11.7 H (3.8-10.6) k/uL Neutrophils # 9.4 H (1.3-7.7) k/uL PT 45.8 H (9.0-12.0) sec INR 4.6 H (<1.2) Sodium 127 L (137-145) mmol/L Chloride 89 L (98-107) mmol/L Glucose 127 H (74-99) mg/dL Microbiology - Last 24 Hours (Table) 03/27/17 09:00 Gram Stain - Preliminary Knee - Left Body Fluid Culture - Preliminary Assessment and Plan (1) Left leg pain Status: Acute Plan: Taylor: 1. Walking difficulty. 2. Left leg pain with Burnett cyst and edema. 3. Overweight. 4. Hypertension. 5. Dyslipidemia. 6. History of stroke. Comments and plan: At this time PT and OT are ongoing. I have discussed PT and OT with patient and she voiced concern about ability to participate. Did attempt to encourage her.
[2017-03-29 15:27] VITALS: BP 134/57; PULSE 68; RESP 16; TEMP 97.9
[2017-03-29] MEDS ORDERED: WARFARIN 1.25 MG TAB PO SCH (18:00)
--- NOTE | 2017-03-29 19:33 | P.DS ---
Providers Date of admission: 03/26/17 18:29 Attending physician: Marcos Chan MD Consults: 03/26/17 18:31 Consult Physician Urgent Consulting Provider: Evan Medrano Consult Reason/Comments: left leg pain Do you want consulting provider notified?: Yes 03/29/17 10:58 Consult Physician Routine Consulting Provider: Jose Miguel Jamil Consult Reason/Comments: inpatient rehab Do you want consulting provider notified?: Yes Primary care physician: Darya Astudillo Hospital Course: 86-year-old female who has been having problems with her left knee since 2016 Patient apparently underwent an arthrocentesis and workup by Dr. hanson at that time. Today patient comes in to the hospital with worsening pain in her left knee for the last 3-4 days. 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 Patient was told that she has significant osteoarthritis of the left knee. Patient is on Coumadin for her history of atrial fibrillation was noted to have a therapeutic INR on admission States that her main complaints of insignificant worsening edema in her left lower extremity with associated tenderness patient underwent a DVT study initially a month ago which was also negative A DVT study was done on this admission which was also negative At this time patient denies having any fevers chills nausea vomiting abdominal pain diarrhea urinary urgency or frequency Patient denies having any history of gout or any renal colic diseases. 03/28/2017 Patient continues to have edema and tenderness in her left lower extremity. No fevers chills chest pain difficulty breathing nausea vomiting diarrhea is reported Physical exam Gen. appearance oriented 3 in no distress Neck is supple no JVD Lungs good air entry clear to auscultation no rhonchi or wheezing Heart S1-S2 heard regular rate and rhythm no murmurs appreciated Abdomen is soft nontender no organomegaly bowel sounds are intact Musculoskeletal left knee is wrapped There is edema pitting in nature from below the knee on the left side area tender to palpation Neurologically cranial nerves II-12 grossly intact no focal motor or sensory deficits noted Skin no abnormalities appreciated Assessment and Plan Plan: #1 acute left knee effusion synovitis fluid analysis does not appear to be suggestive of an infectious cause #2 history of atrial fibrillation #3 history of CVA #4 hypothyroidism #5 essential hypertension #6 acute gastritis due to opioid non-tolerance. #7 dyslipidemia Patient could not be discharged to rehab facility Did discuss seeking additional help from family. Safety issues were addressed. pt's INR discharge will 4.4 did discuss holding off of Coumadin for the next 2 doses She now wants to follow-up with Dr. Hanson an appointment was made in 1 week In control is addressed the discharge the patient with tramadol knee immobilizer as recommended Akbar wrap is recommended per graph home with home care Patient Condition at Discharge: Fair Plan - Discharge Summary New Discharge Prescriptions: New traMADol HCl [Ultram] 50 mg PO TID PRN #40 tab PRN Reason: pain Continue Simvastatin [Zocor] 20 mg PO HS Ranitidine HCl 150 mg PO HS PRN PRN Reason: Heartburn Loratadine [Claritin] 10 mg PO DAILY PRN PRN Reason: Allergy Symptoms Levothyroxine Sodium [Synthroid] 75 mcg PO DAILY Multivitamin/Iron/Folic Acid [Centrum Complete Multivit Tab] 1 tab PO DAILY Furosemide [Lasix] 20 mg PO DAILY #30 tab Aspirin EC [Ecotrin Low Dose] 81 mg PO DAILY #30 tablet. Warfarin [Coumadin] 2.5 mg PO SUTUWETHSA Warfarin [Coumadin] 1.25 mg PO MOFR Metoprolol Tartrate [Lopressor] 50 mg PO BID Losartan Potassium [Cozaar] 100 mg PO DAILY Ascorbic Acid [Vitamin C] 500 mg PO DAILY Alendronate Sodium [Fosamax] 70 mg PO HOFFMAN Cholecalciferol [Vitamin D3] 1,000 unit PO DAILY Discharge Medication List Levothyroxine Sodium [Synthroid] 75 mcg PO DAILY 10/06/14 [History] Loratadine [Claritin] 10 mg PO DAILY PRN 10/06/14 [History] Ranitidine HCl 150 mg PO HS PRN 10/06/14 [History] Simvastatin [Zocor] 20 mg PO HS 10/06/14 [History] Multivitamin/Iron/Folic Acid [Centrum Complete Multivit Tab] 1 tab PO DAILY [History] Aspirin EC [Ecotrin Low Dose] 81 mg PO DAILY #30 tablet. 03/21/16 [Rx] Furosemide [Lasix] 20 mg PO DAILY #30 tab 03/21/16 [Rx] Alendronate Sodium [Fosamax] 70 mg PO HOFFMAN 02/25/17 [History] Ascorbic Acid [Vitamin C] 500 mg PO DAILY 02/25/17 [History] Losartan Potassium [Cozaar] 100 mg PO DAILY 02/25/17 [History] Metoprolol Tartrate [Lopressor] 50 mg PO BID 02/25/17 [History] Warfarin [Coumadin] 1.25 mg PO MOFR 02/25/17 [History] Warfarin [Coumadin] 2.5 mg PO SUTUWETHSA 02/25/17 [History] Cholecalciferol [Vitamin D3] 1,000 unit PO DAILY 03/26/17 [History] traMADol HCl [Ultram] 50 mg PO TID PRN #40 tab 03/29/17 [Rx] Follow up Appointment(s)/Referral(s): Darya Astudillo MD [Primary Care Provider] - 1-2 days (office will call you with appointment date and time) Randolph Hanson DO [Doctor of Osteopathic Medicine] - 04/04/17 3:20 pm Patient Instructions/Handouts: Bakers Cyst (DC) Activity/Diet/Wound Care/Special Instructions: Knee immobilizer to left lower extremity when up. Weightbearing as tolerated with walker Continue GIOVANA hose, compressive Akbar wrap, rest, ice and elevation. [facility] Nurse:[phone] HOLD coumadin through Saturday. Start taking coumadin as ordered on Saturday, 04/01 Discharge Disposition: HOME WITH HOME HEALTH SERVICES
[2017-03-31] MEDS ORDERED: NON-FORMULARY DRUG (Alendronate Sodium [Fosamax] 70 MG) PO SCH (18:33)
== END 2017-03-29 16:01 | disposition home health service (06) ==
LOC: EC 16:24 → 4MS4W 18:29 → INTOOBSV 18:29 → 4MS4W 18:47
PROVIDERS: ADMIT Internal Medicine; ATTEND Internal Medicine
DX: M71.20 Synovial cyst of popliteal space [Baker], unspecified knee (principal); M17.12 Unilateral primary osteoarthritis, left knee; I48.91 Unspecified atrial fibrillation; K21.9 Gastro-esophageal reflux disease without esophagitis; I10 Essential (primary) hypertension; K29.00 Acute gastritis without bleeding; E66.9 Obesity, unspecified; E03.9 Hypothyroidism, unspecified; E78.5 Hyperlipidemia, unspecified; Z87.891 Personal history of nicotine dependence; Z79.899 Other long term (current) drug therapy; Z79.02 Long term (current) use of antithrombotics/antiplatelets; Z79.83 Long term (current) use of bisphosphonates; Z79.01 Long term (current) use of anticoagulants; Z79.82 Long term (current) use of aspirin; Z88.5 Allergy status to narcotic agent; Z88.0 Allergy status to penicillin; Z88.8 Allergy status to other drugs, medicaments and biological substances; Z91.048 Other nonmedicinal substance allergy status; Z86.73 Personal history of transient ischemic attack (TIA), and cerebral infarction without residual deficits; Z80.8 Family history of malignant neoplasm of other organs or systems; Z95.0 Presence of cardiac pacemaker; Z68.35 Body mass index [BMI] 35.0-35.9, adult; M79.605 Pain in left leg
CPT/HCPCS: 20610; 96376 ×4; 96375 ×2; 96374; 99284; 97161; 97166; 89060; 80053; 80048; 89050; 85025 ×2; 85610 ×3; 85730; 87070; 87205; 73562; 93971; G0378 ×3; L1830; J2001; J0360; J2405 ×3; J1170 ×2; C9113 ×2

== ENCOUNTER → 2017-10-18 | Outpatient (CLI) | payer MEDICARE ==
[2017-10-18 17:26] LABS: HCT 41.7 % (34.0-46.0); HGB 13.8 gm/dL (11.4-16.0); MCH 30.8 pg (25.0-35.0); MCHC 33.1 g/dL (31.0-37.0); MCV 93.2 fL (80.0-100.0); Mean Platelet Volume 7.4; Platelet Count 252 k/uL (150-450); RBC 4.47 m/uL (3.80-5.40); RDW 12.6 % (11.5-15.5); WBC 8.9 k/uL (3.8-10.6)
[2017-10-18 17:36] LABS: Albumin 4.4 g/dL (3.5-5.0); Calcium 10.1 mg/dL (8.4-10.2); Potassium 4.7 mmol/L (3.5-5.1); Total Bilirubin 0.5 mg/dL (0.2-1.3); Total Protein 7.1 g/dL (6.3-8.2)
== END | disposition home or self-care (01) ==
LOC: LABWHC1 15:43
PROVIDERS: ATTEND Internal Medicine Clinical Cardiac Electrophysiology
DX: I49.5 Sick sinus syndrome (principal); E78.5 Hyperlipidemia, unspecified
CPT/HCPCS: 36415; 80053; 80061; 85027